=== PATIENT | male | born 1945 ===

== ENCOUNTER 2017-03-18 21:45 | Observation (INO) | payer OTHER ==
[2017-03-18 21:52] VITALS: BMI 30.8
[2017-03-18] MEDS ORDERED: Sodium Chloride 0.9% 1,000 ML IV STA ×2 (22:26→23:44)
[2017-03-18] MEDS ORDERED: Insulin Regular 1 UNITS/0.01 ML ML IV STA (22:28)
[2017-03-18 22:53] LABS: BASO # 0.04 K/mm3 (0.0-2.0); BASO % 0.6 % (0.0-3.0); EOS # 0.3 (0.0-0.7); EOS % 3.9 % (1.5-5.0); GRAN # 4.12 (1.4-6.5); GRAN % 58.9 % (50.0-68.0); HEMOGLOBIN 14.1 g/dL (14.0-18.0); LYMPH # 2.1 (1.2-3.4); LYMPH % 30.3 % (22.0-35.0); MEAN CELL VOLUME 93.7 fl (80.0-105.0); MEAN CORPUSCULAR HEMOGLOBIN 30.6 pg (25.0-35.0); MEAN CORPUSCULAR HGB CONC 32.6 g/dl (31.0-37.0); MEAN PLATELET VOLUME 13.3 fl (7.0-11.0); MONO # 0.4 (0.1-0.6); MONO % 6.3 % (1.0-6.0); RBC 4.61 10^6/uL (3.5-6.1); RED CELL DISTRIBUTION WIDTH 13.6 % (11.5-14.5)
[2017-03-18 22:54] LABS: URINE BILIRUBIN NEGATIVE (NEGATIVE); URINE BLOOD NEGATIVE (NEGATIVE); URINE GLUCOSE (UA) >=1000 mg/dL (NEGATIVE); URINE LEUKOCYTE ESTERASE NEGATIVE Leu/uL (NEGATIVE); URINE NITRATE NEGATIVE (NEGATIVE); URINE PROTEIN NEGATIVE mg/dL (<30 mg/dL); URINE UROBILINOGEN 0.2 E.U./dL (<1 E.U./dL)
[2017-03-18 22:55] LABS: URINE APPEARANCE CLEAR (CLEAR); URINE COLOR YELLOW (YELLOW)
[2017-03-18 23:05] LABS: ALB/GLOB RATIO 1.3 (1.1-1.8); ALBUMIN 4.3 g/dL (3.0-4.8); ALT/SGPT 52 U/L (7-56); AST/SGOT 29 U/L (17-59); BLOOD UREA NITROGEN 14 mg/dL (7-21); CALCIUM 10.1 mg/dL (8.4-10.5); GFR AFRICAN-AMERICAN > 60; GFR NON-AFRICAN AMERICAN > 60; INR 0.91 (0.93-1.08); MAGNESIUM 2.2 mg/dL (1.7-2.2); PROTHROMBIN TIME 10.4 SECONDS (9.4-12.5)
[2017-03-18 23:12] LABS: TROPONIN I < 0.01 ng/mL
--- NOTE | 2017-03-18 23:43 | ED PDOC ---
Arrival/HPI - General Chief Complaint: High Blood Sugar Time Seen by Provider: 03/18/17 22:01 Historian: Patient - History of Present Illness Narrative History of Present Illness (Text): 03/19/17 00:43 72yo male with PMHx of hypercholestrol present with complaint of polyuria/phagia /dipsia, weight loss, x 3weeks. States he had Flu 3weeks ago and thought these symptoms are related to the flu, but his BS was greater than 400 when his checked it tonight. He denies previous history of Diabetes. states the last time he saw his PCP was 3years ago. He denies nausea, vomiting, abdominal pain, chest pain, SOB, diaphoresis, urinary symptoms, any other complaint. Past Medical History - Provider Review Nursing Documentation Reviewed: Yes - Pulmonary Hx Respiratory Disorders: No - Neurological Hx Neurological Disorder: No - HEENT Hx HEENT Disorder: No - Renal Hx Renal Disorder: No - Endocrine/Metabolic Hx Endocrine Disorders: No - Hematological/Oncological Hx Blood Disorders: No - Integumentary Hx Dermatological Disorder: No - Musculoskeletal/Rheumatological Hx Musculoskeletal Disorders: No - Gastrointestinal Hx Gastrointestinal Disorders: No - Genitourinary/Gynecological Hx Genitourinary Disorders: No - Psychiatric Hx Psychophysiologic Disorder: No Hx Substance Use: No Family/Social History - Physician Review Nursing Documentation Reviewed: Yes Family/Social History: Unknown Family HX Smoking Status: Never Smoked Hx Alcohol Use: Yes Frequency of alcohol use: Socially Hx Substance Use: No Allergies/Home Meds Allergies/Adverse Reactions: Allergies No Known Allergies Allergy (Verified 03/18/17 21:51) Home Medications: Home Meds Medication Instructions Recorded Confirmed No Known Home Med 03/18/17 03/18/17 Review of Systems - Physician Review All systems were reviewed & negative as marked: Yes - Review of Systems Constitutional: Fatigue Eyes: Normal ENT: Normal Respiratory: Normal Cardiovascular: Normal Gastrointestinal: Normal Genitourinary Male: Normal Musculoskeletal: Normal Skin: Normal Neurological: Normal Endocrine: Polyuria, Polydipsia Hemo/Lymphatic: Normal Psychiatric: Normal Physical Exam Vital Signs Reviewed: Yes Vital Signs Temp Pulse Resp BP Pulse Ox 03/19/17 00:28 83 18 135/82 98 03/18/17 21:54 98.6 F 92 H 18 138/86 97 03/18/17 21:52 98.2 F 92 H 20 138/86 95 Temperature: Afebrile Blood Pressure: Normal Pulse: Regular Respiratory Rate: Normal Appearance: Positive for: Well-Appearing, Non-Toxic, Comfortable Pain Distress: None Mental Status: Positive for: Alert and Oriented X 3 Finger Stick Blood Glucose: 500 - Systems Exam Head: Present: Atraumatic, Normocephalic Pupils: Present: PERRL Extroacular Muscles: Present: EOMI Conjunctiva: Present: Normal Mouth: Present: Moist Mucous Membranes Neck: Present: Normal Range of Motion Respiratory/Chest: Present: Clear to Auscultation, Good Air Exchange. No: Respiratory Distress, Accessory Muscle Use Cardiovascular: Present: Regular Rate and Rhythm, Normal S1, S2. No: Murmurs Abdomen: Present: Normal Bowel Sounds. No: Tenderness, Distention, Peritoneal Signs Back: Present: Normal Inspection Upper Extremity: Present: Normal Inspection. No: Cyanosis, Edema Lower Extremity: Present: Normal Inspection. No: Edema Neurological: Present: GCS=15, CN II-XII Intact, Speech Normal Skin: Present: Warm, Dry, Normal Color. No: Rashes Psychiatric: Present: Alert, Oriented x 3, Normal Insight, Normal Concentration Medical Decision Making ED Course and Treatment: 03/19/17 00:50 PT presented for stated history. His BS was 500 in triage. Lab was 892 with normal AG. 2liters of NS was ordered and 18 units of IV insulin and 20units of Sq insulin given. Repeat FS was 328 in ED. Pt will be admitted for proper education of his BS, he is a new onset diabetic. EKG NSR with RBBB @83bpm. No ST changes. Case was DW Dr. Mccormack and he accepted pt for admission. Result and plan was DW the pt and he agreed - Lab Interpretations Lab Results: 03/18/17 22:38 03/18/17 22:38 Lab Results 03/19/17 00:39: POC Glucose (mg/dL) 334 H 03/19/17 00:15: pCO2 35, pO2 83.0, HCO3 21.7, ABG pH 7.40, ABG Total CO2 22.8, ABG O2 Saturation 98.9 H, ABG O2 Content 16.8, ABG Base Excess -2.6 L, ABG Hemoglobin 12.4, ABG Carboxyhemoglobin 1.9 H, POC ABG HHb (Measured) 1.1, ABG Methemoglobin 0.9, ABG O2 Capacity 17.0, Hgb O2 Saturation 96.1, FiO2 21.0 03/18/17 23:26: POC Glucose (mg/dL) > 500 H* 03/18/17 22:38: Sodium 130 L, Potassium 4.6, Chloride 93 L, Carbon Dioxide 24, Anion Gap 18, BUN 14, Creatinine 0.9, Est GFR ( Amer) > 60, Est GFR (Non- Af Amer) > 60, Random Glucose 892 H*, Calcium 10.1, Magnesium 2.2, Total Bilirubin 0.5, AST 29, ALT 52, Alkaline Phosphatase 198 H, Lactate Dehydrogenase 372, Total Creatine Kinase 91, Troponin I < 0.01, Total Protein 7.6, Albumin 4.3, Globulin 3.3, Albumin/Globulin Ratio 1.3 03/18/17 22:38: Urine Color Yellow, Urine Appearance Clear, Urine pH 6.0, Ur Specific [place] 1.010, Urine Protein Negative, Urine Glucose (UA) >=1000, Urine Ketones Negative, Urine Blood Negative, Urine Nitrate Negative, Urine Bilirubin Negative, Urine Urobilinogen 0.2, Ur Leukocyte Esterase Negative 03/18/17 22:38: PT 10.4, INR 0.91 L, APTT 30.0 03/18/17 22:38: WBC 7.0, RBC 4.61, Hgb 14.1, Hct 43.2, MCV 93.7, MCH 30.6, MCHC 32.6, RDW 13.6, Plt Count 214, MPV 13.3 H, Gran % 58.9, Lymph % (Auto) 30.3, [place] % (Auto) 6.3 H, Eos % (Auto) 3.9, Baso % (Auto) 0.6, Gran # 4.12, Lymph # ( Auto) 2.1, [place] # (Auto) 0.4, Eos # (Auto) 0.3, Baso # (Auto) 0.04 - Medication Orders Current Medication Orders: Sodium Chloride (Sodium Chloride 0.9%) 1,000 mls @ 999 mls/hr IV .Q1H1M STA Stop: 03/19/17 00:44 Last Admin: 03/18/17 23:45 Dose: 999 mls/hr eMAR Start Stop Document 03/18/17 23:45 AD (Rec: 03/19/17 00:01 AD [id number]) Intravenous Solution Start Date 03/19/17 Start Time 23:45 Discontinued Medications Sodium Chloride (Sodium Chloride 0.9%) 1,000 mls @ 999 mls/hr IV .Q1H1M STA Stop: 03/18/17 23:26 Last Admin: 03/18/17 22:30 Dose: 999 mls/hr eMAR Start Stop Document 03/18/17 22:30 AD (Rec: 03/18/17 23:10 AD [id number]) Intravenous Solution Start Date 03/18/17 Start Time 22:30 Insulin Human Regular (Humulin R) 10 units IV ONCE STA PRN Reason: Protocol Stop: 03/18/17 22:29 Last Admin: 03/18/17 22:40 Dose: 10 units eMAR Start Stop Document 03/18/17 22:40 AD (Rec: 03/18/17 23:10 AD [id number]) Intravenous Solution Start Date 03/18/17 Start Time 22:40 MAR Blood Glucose Document 03/18/17 22:40 AD (Rec: 03/18/17 23:10 AD [id number]) Blood Glucose Finger Stick Blood Glucose (70-120) 500 Insulin Human Regular (Humulin R) 8 units IVP ONCE STA Stop: 03/18/17 23:46 Last Admin: 03/18/17 23:50 Dose: 8 units MAR Blood Glucose Document 03/18/17 23:50 AD (Rec: 03/19/17 00:01 AD [id number]) Blood Glucose Finger Stick Blood Glucose (70-120) 500 IVP Administration Document 03/18/17 23:50 AD (Rec: 03/19/17 00:01 AD [id number]) Charges for Administration # of IVP Administrations 1 Insulin Human Regular (Humulin R) 20 units SC ONCE STA Stop: 03/19/17 00:03 Last Admin: 03/19/17 00:23 Dose: 20 units MAR Blood Glucose Document 03/19/17 00:23 AD (Rec: 03/19/17 00:24 AD [id number]) Blood Glucose Finger Stick Blood Glucose (70-120) 500 Subcutaneous Administrations Document 03/19/17 00:23 AD (Rec: 03/19/17 00:24 AD [id number]) Injection Site MAR Injection Site Left Abdomen Charges for Administration # of Subcutaneous Administrations 1 Disposition/Present on Arrival - Present on Arrival Any Indicators Present on Arrival: No History of DVT/PE: No History of Uncontrolled Diabetes: No Urinary Catheter: No History of Decub. Ulcer: No History Surgical Site Infection Following: None - Disposition Have Diagnosis and Disposition been Completed?: Yes Diagnosis: Diabetes mellitus, new onset Disposition: HOSPITALIZED Disposition Time: 00:50 Condition: FAIR Referrals: Ciro Lorenz [Primary Care Provider] - Follow up with primary Forms: [employer] (Sinhala)
[2017-03-18] MEDS ORDERED: Insulin Regular 1 UNITS/0.01 ML ML IVP STA (23:45)
[2017-03-19] MEDS ORDERED: Insulin Regular 1 UNITS/0.01 ML ML SC STA (00:02)
[2017-03-19 00:19] LABS: ARTERIAL BLOOD GAS HCO3 21.7 mmol/L (21-28); ARTERIAL BLOOD GAS HEMOGLOBIN 12.4 g/dL (11.7-17.4); ARTERIAL BLOOD GAS O2 CONTENT 16.8 ML/dl (15-23); ARTERIAL BLOOD GAS O2 SAT 98.9 % (95-98); ARTERIAL BLOOD GAS PCO2 35 mm/Hg (35-45); ARTERIAL BLOOD GAS TCO2 22.8 mmol.L (22-28)
--- NOTE | 2017-03-19 01:52 | CP.PCM.HP ---
History of Present Illness - History of Present Illness History of Present Illness: 72 year old male with no significant past medical history presents with complaint of polyuria, polyphagia, polydipsia, weight loss for a month now. Patient states he has been drinking excessive amount of water, urinating every 30 min and having an increased appetite. He has also lost a significant amount of weight as his clothes are all loose now. Patient also admits to weakness and fatigue. Patients step daughter noticed symptoms today and took patient blood sugar at home which read over 600 at that point. Patient denies any nausea, vomiting, chest pain, shortness of breath, fever, chills or any other symptoms at this time. Patient does not currently have a PMD, last time he saw physician was 3 years ago. PMH: none significant PSH: none Allergies: none Social: denies alcohol use, occasional beer on the weekends, denies illicit drug use Meds: none Family: brother has DM Present on Admission - Present on Admission Any Indicators Present on Admission: No Review of Systems - Constitutional Constitutional: Fatigue, Increased Appetite, Lethargy, Malaise, Weight Loss, Weakness. absent: Anorexia, Chills, Fever - EENT Eyes: absent: Blurred Vision, Change in Vision Nose/Mouth/Throat: absent: Nasal Congestion, Nasal Discharge - Cardiovascular Cardiovascular: absent: Chest Pain, Dyspnea, Lightheadedness, Palpitations - Respiratory Respiratory: absent: Cough, Dyspnea, Chest Congestion - Gastrointestinal Gastrointestinal: absent: Abdominal Pain, Nausea, Vomiting - Genitourinary Genitourinary: Urinary Frequency - Musculoskeletal Musculoskeletal: absent: Arthralgias, Numbness, Tingling - Integumentary Integumentary: absent: Rash, Sores Past Patient History - Past Social History Smoking Status: Never Smoked - PULMONARY Hx Respiratory Disorders: No - NEUROLOGICAL Hx Neurological Disorder: No - HEENT Hx HEENT Problems: No - RENAL Hx Chronic Kidney Disease: No - ENDOCRINE/METABOLIC Hx Endocrine Disorders: No - HEMATOLOGICAL/ONCOLOGICAL Hx Blood Disorders: No - INTEGUMENTARY Hx Dermatological Problems: No - MUSCULOSKELETAL/RHEUMATOLOGICAL Hx Musculoskeletal Disorders: No - GASTROINTESTINAL Hx Gastrointestinal Disorders: No - GENITOURINARY/GYNECOLOGICAL Hx Genitourinary Disorders: No - PSYCHIATRIC Hx Psychophysiologic Disorder: No Hx Substance Use: No - SURGICAL HISTORY Hx Surgeries: No Meds Allergies/Adverse Reactions: Allergies Allergy/AdvReac Type Severity Reaction Status Date / Time No Known Allergies Allergy Verified 03/18/17 21:51 Physical Exam - Constitutional Appears: Non-toxic, No Acute Distress - Head Exam Head Exam: ATRAUMATIC, NORMAL INSPECTION, NORMOCEPHALIC - Eye Exam Eye Exam: EOMI, Normal appearance - ENT Exam ENT Exam: Mucous Membranes Moist, Normal Exam - Neck Exam Neck exam: Negative for: Lymphadenopathy, Tenderness - Respiratory Exam Respiratory Exam: Clear to Auscultation Bilateral, NORMAL BREATHING PATTERN - Cardiovascular Exam Cardiovascular Exam: REGULAR RHYTHM, +S1, +S2 - GI/Abdominal Exam GI & Abdominal Exam: Normal Bowel Sounds, Soft - Extremities Exam Extremities exam: Positive for: pedal pulses present. Negative for: pedal edema , tenderness - Neurological Exam Neurological exam: Alert, Oriented x3 Results - Vital Signs Recent Vital Signs: Last Vital Signs Temp 98.6 F 03/18/17 21:54 Pulse 83 03/19/17 00:28 Resp 18 03/19/17 00:28 BP 135/82 03/19/17 00:28 Pulse Ox 98 03/19/17 00:28 - Labs Result Diagrams: 03/18/17 22:38 03/18/17 22:38 Labs: Laboratory Results - last 24 hr 03/19/17 00:39 POC Glucose (mg/dL) 334 H Assessment & Plan - Assessment and Plan (Free Text) Assessment: 72 year old male with no significant past medical history presents with complaint of polyuria, polyphagia, polydipsia, weight loss for a month now. Patient was found to have a blood sugar of 892. Plan: 1. Elevated Blood Sugar Level -EKG pending official read -Blood Sugar initially 892, last was 334 -insulin given in ED -sliding scale high -NPH 20 units for breakfast and dinner -NS given inn ED -continue to monitor -Fingerstick Q1H -heart healthy diet -Hemoglobin A1C pending -lipid panel penidng -TSh/T4 Pending 2. Hyponatremia 2/2 elevated Blood Sugar -Na 130 -continue to monitor GI/DVT -protonix -SCD
[2017-03-19 01:54] LABS: AMYLASE 53 U/L (35-125); HDL CHOLESTEROL 36 mg/dL (29-60); LIPASE 272 U/L (23-300)
[2017-03-19 02:04] LABS: LDL CHOLESTEROL 87 mg/dL (0-129)
[2017-03-19 02:13] LABS: T4 5.9 ug/dL (5.5-11.0)
[2017-03-19] MEDS ORDERED: Sodium Chloride 0.9% 1,000 ML IV SCH ×2 (02:15→07:30)
[2017-03-19] MEDS ORDERED: Influenza Vaccine 60 mcg/0.5 mL SYR (4YR UP) IM ONE (07:40)
[2017-03-19] MEDS ORDERED: Pneumococcal 23-Valent Vaccine IM ONE (07:40)
[2017-03-19] MEDS ORDERED: Insulin Human NPH 1 UNITS/0.01 ML SC SCH ×2 (08:00→17:00)
[2017-03-19] MEDS: Insulin Lispro (HUMAlog) HIGH Coverage SC SCH ×2 (08:03→12:19)
[2017-03-19 08:12] LABS: BASO # 0.02 K/mm3 (0.0-2.0); BASO % 0.2 % (0.0-3.0); EOS # 0.5 (0.0-0.7); EOS % 5.9 % (1.5-5.0); GRAN # 4.84 (1.4-6.5); HEMOGLOBIN 12.6 g/dL (14.0-18.0); LYMPH # 2.4 (1.2-3.4); LYMPH % 28.3 % (22.0-35.0); MEAN CORPUSCULAR HEMOGLOBIN 29.9 pg (25.0-35.0); MEAN CORPUSCULAR HGB CONC 32.9 g/dl (31.0-37.0); MEAN PLATELET VOLUME 13.1 fl (7.0-11.0); MONO # 0.6 (0.1-0.6); MONO % 7.6 % (1.0-6.0); RBC 4.21 10^6/uL (3.5-6.1); RED CELL DISTRIBUTION WIDTH 13.2 % (11.5-14.5); WHITE BLOOD COUNT 8.3 10^3/ul (4.5-11.0)
[2017-03-19 08:24] LABS: LDL CHOLESTEROL 83 mg/dL (0-129)
[2017-03-19 08:29] LABS: FREE T4 1.12 ng/dL (0.78-2.19)
--- NOTE | 2017-03-19 08:36 | RAD ---
HISTORY: admission COMPARISON: No prior. FINDINGS: LUNGS: No active pulmonary disease. PLEURA: No significant pleural effusion identified, no pneumothorax apparent. CARDIOVASCULAR: Normal. OSSEOUS STRUCTURES: No significant abnormalities. VISUALIZED UPPER ABDOMEN: Normal. OTHER FINDINGS: None. IMPRESSION: No active disease.
[2017-03-19 08:38] LABS: ALB/GLOB RATIO 1.2 (1.1-1.8); ALBUMIN 3.5 g/dL (3.0-4.8); ALT/SGPT 38 U/L (7-56); AST/SGOT 27 U/L (17-59); BILIRUBIN,DIRECT 0.4 mg/dL (0.0-0.4); BLOOD UREA NITROGEN 13 mg/dL (7-21); CALCIUM 9.2 mg/dL (8.4-10.5); GFR AFRICAN-AMERICAN > 60; GFR NON-AFRICAN AMERICAN > 60; HDL CHOLESTEROL 36 mg/dL (29-60); MAGNESIUM 2.1 mg/dL (1.7-2.2)
[2017-03-19] MEDS: Omega-3-Acid Ethyl Esters 1 GM Cap PO SCH ×2 (09:23→17:07)
[2017-03-19] MEDS: Enoxaparin 40 mg Syringe SC SCH (09:23)
--- NOTE | 2017-03-19 12:28 | CARD ---
APPROVED REPORT EKG Measurement Heart [id number] CT [id number] <Conclusion> Normal sinus rhythm Right bundle branch block Abnormal ECG
[2017-03-19 15:16] LABS: URINE APPEARANCE CLEAR (CLEAR); URINE BILIRUBIN NEGATIVE (NEGATIVE); URINE BLOOD NEGATIVE (NEGATIVE); URINE COLOR YELLOW (YELLOW); URINE GLUCOSE (UA) >=1000 mg/dL (NEGATIVE); URINE LEUKOCYTE ESTERASE NEGATIVE Leu/uL (NEGATIVE); URINE NITRATE NEGATIVE (NEGATIVE); URINE PROTEIN NEGATIVE mg/dL (<30 mg/dL); URINE UROBILINOGEN 0.2 E.U./dL (<1 E.U./dL)
--- NOTE | 2017-03-19 15:37 | CP.PCM.CON ---
<Sudhir David - Last Filed: 03/19/17 15:32> History of Present Illness - History of Present Illness History of Present Illness: 72 year old male patient with no significant past medical history was seen and evaluated at bedside for newly diagnosed DM. Patient reports that he was admitted to the hospital yesterday with the blood sugar level in the "800s". Patient states that he does not manage his diet. Patient denies of any form of numbness, tingling or burning in his feet today. Patient denies of any recent F/ N/V/C/SOB/CP/headache. Patient reports of polyuria, polydipsia, polyphagia and weight loss. Patient denies of any other complains at this time. Patient reported that he does not see a primary care doctor as he does not have one. Patient denies of any other complains at this time. PMHx: none significant PSHx: none Allergies: none SocialHx: denies alcohol use, occasional beer on the weekends, denies illicit drug use FamilyHx: brother has DM Review of Systems - EENT Eyes: As Per HPI Past Patient History - Past Social History Smoking Status: Never Smoked - PULMONARY Hx Respiratory Disorders: No - NEUROLOGICAL Hx Neurological Disorder: No - HEENT Hx HEENT Problems: No - RENAL Hx Chronic Kidney Disease: No - ENDOCRINE/METABOLIC Hx Endocrine Disorders: No - HEMATOLOGICAL/ONCOLOGICAL Hx Blood Disorders: No - INTEGUMENTARY Hx Dermatological Problems: No - MUSCULOSKELETAL/RHEUMATOLOGICAL Hx Musculoskeletal Disorders: No - GASTROINTESTINAL Hx Gastrointestinal Disorders: No - GENITOURINARY/GYNECOLOGICAL Hx Genitourinary Disorders: No - PSYCHIATRIC Hx Psychophysiologic Disorder: No Hx Substance Use: No - SURGICAL HISTORY Hx Surgeries: No Meds Allergies/Adverse Reactions: Allergies Allergy/AdvReac Type Severity Reaction Status Date / Time No Known Allergies Allergy Verified 03/18/17 21:51 - Medications Medications: Current Medications Atorvastatin Calcium (Lipitor) 40 mg PO DIN [facility] Enoxaparin Sodium (Lovenox) 40 mg SC DAILY [facility] PRN Reason: Protocol Last Admin: 03/19/17 09:23 Dose: 40 mg Sodium Chloride (Sodium Chloride 0.9%) 1,000 mls @ 150 mls/hr IV .Q6H40M [facility] Insulin Detemir (Levemir) 14 unit SC HS [facility] Insulin Human Lispro (Humalog Low) 0 units SC ACHS [facility] PRN Reason: Protocol Insulin Human Lispro (Humalog) 10 units SC AC [facility] [id number] Ethyl Esters (Lovaza) 2 gm PO BID [facility] Last Admin: 03/19/17 09:23 Dose: 2 gm Pantoprazole Sodium (Protonix Ec Tab) 40 mg PO 0600,1600 [facility] Physical Exam - Constitutional Appears: Well, Non-toxic, No Acute Distress - Extremities Exam Additional comments: Bilateral LE focused exam VASC: DP/PT pulses are palpable 2/4, Cap refill time: < 3 sec to all digits, Temp gradient: warm to cool from proximal to distal, no pitting or non-pitting edema noted; diffuse varicosities noted on b/l LE DERM: Diffuse xerosis noted on bilateral feet, no interdigital maceration, no open lesions, no clinical suspicion of active infection at this time NEURO: Protective sensation mildly diminished tested via Ipswitch test ORTHO: no pain on palpation of the plantar medial tubercle on calc; no pain at the ankle joint, STJ, MTJ, or first ray during passive ROM, no pain at any joints during AROM; MMT: 5/5 during ROM in all 4 compartments - Neurological Exam Neurological exam: Alert, Normal Gait, Oriented x3 - Psychiatric Exam Psychiatric exam: Normal Affect, Normal Mood Results - Vital Signs Recent Vital Signs: Last Vital Signs Temp 98.6 F 03/19/17 07:30 Pulse 81 03/19/17 07:30 Resp 18 03/19/17 07:30 BP 115/79 03/19/17 07:30 Pulse Ox 96 03/19/17 07:30 - Labs Result Diagrams: 03/19/17 07:30 03/19/17 07:30 Labs: Laboratory Results - last 24 hr 03/19/17 03/19/17 03/19/17 00:39 01:10 01:10 WBC RBC Hgb Hct MCV MCH MCHC RDW Plt Count MPV Gran % Lymph % (Auto) Ransom % (Auto) Eos % (Auto) Baso % (Auto) Gran # Lymph # (Auto) Ransom # (Auto) Eos # (Auto) Baso # (Auto) ESR Sodium Potassium Chloride Carbon Dioxide Anion Gap BUN Creatinine Est GFR ( Amer) Est GFR (Non-Af Amer) POC Glucose (mg/dL) 334 H Random Glucose Hemoglobin A1c Calcium Magnesium Total Bilirubin Direct Bilirubin AST ALT Alkaline Phosphatase C-React Prot High Sens 3.12 H Total Protein Albumin Globulin Albumin/Globulin Ratio Triglycerides 252 H Cholesterol 164 LDL Cholesterol Direct 87 HDL Cholesterol 36 Amylase 53 Lipase 272 Prostate Specific Ag 25-OH Vitamin D Total Free T4 Thyroxine (T4) 5.9 TSH 3rd Generation 1.91 Urine Color Urine Appearance Urine pH Ur Specific [place] Urine Protein Urine Glucose (UA) Urine Ketones Urine Blood Urine Nitrate Urine Bilirubin Urine Urobilinogen Ur Leukocyte Esterase 03/19/17 03/19/17 03/19/17 01:10 01:10 07:28 WBC RBC Hgb Hct MCV MCH MCHC RDW Plt Count MPV Gran % Lymph % (Auto) Ransom % (Auto) Eos % (Auto) Baso % (Auto) Gran # Lymph # (Auto) Ransom # (Auto) Eos # (Auto) Baso # (Auto) ESR 43 H Sodium Potassium Chloride Carbon Dioxide Anion Gap BUN Creatinine Est GFR ( Amer) Est GFR (Non-Af Amer) POC Glucose (mg/dL) 75 Random Glucose Hemoglobin A1c 15.1 H Calcium Magnesium Total Bilirubin Direct Bilirubin AST ALT Alkaline Phosphatase C-React Prot High Sens Total Protein Albumin Globulin Albumin/Globulin Ratio Triglycerides Cholesterol LDL Cholesterol Direct HDL Cholesterol Amylase Lipase Prostate Specific Ag 25-OH Vitamin D Total Free T4 Thyroxine (T4) TSH 3rd Generation Urine Color Urine Appearance Urine pH Ur Specific [place] Urine Protein Urine Glucose (UA) Urine Ketones Urine Blood Urine Nitrate Urine Bilirubin Urine Urobilinogen Ur Leukocyte Esterase 03/19/17 03/19/17 03/19/17 07:30 07:30 07:30 WBC 8.3 RBC 4.21 Hgb 12.6 L Hct 38.3 L MCV 91.0 MCH 29.9 MCHC 32.9 RDW 13.2 Plt Count 193 MPV 13.1 H Gran % 58.0 Lymph % (Auto) 28.3 Ransom % (Auto) 7.6 H Eos % (Auto) 5.9 H Baso % (Auto) 0.2 Gran # 4.84 Lymph # (Auto) 2.4 Ransom # (Auto) 0.6 Eos # (Auto) 0.5 Baso # (Auto) 0.02 ESR Sodium 143 Potassium 3.9 Chloride 106 Carbon Dioxide 27 Anion Gap 13 BUN 13 Creatinine 0.7 L Est GFR ( Amer) > 60 Est GFR (Non-Af Amer) > 60 POC Glucose (mg/dL) Random Glucose 87 Hemoglobin A1c Calcium 9.2 Magnesium 2.1 Total Bilirubin 0.4 Direct Bilirubin 0.4 AST 27 ALT 38 Alkaline Phosphatase 90 C-React Prot High Sens Total Protein 6.5 Albumin 3.5 Globulin 3.0 Albumin/Globulin Ratio 1.2 Triglycerides 160 Cholesterol 151 LDL Cholesterol Direct 83 HDL Cholesterol 36 Amylase Lipase Prostate Specific Ag 2.6 H 25-OH Vitamin D Total Free T4 1.12 Thyroxine (T4) TSH 3rd Generation Urine Color Urine Appearance Urine pH Ur Specific [place] Urine Protein Urine Glucose (UA) Urine Ketones Urine Blood Urine Nitrate Urine Bilirubin Urine Urobilinogen Ur Leukocyte Esterase 03/19/17 03/19/17 03/19/17 07:30 11:23 15:05 WBC RBC Hgb Hct MCV MCH MCHC RDW Plt Count MPV Gran % Lymph % (Auto) Ransom % (Auto) Eos % (Auto) Baso % (Auto) Gran # Lymph # (Auto) Ransom # (Auto) Eos # (Auto) Baso # (Auto) ESR Sodium Potassium Chloride Carbon Dioxide Anion Gap BUN Creatinine Est GFR ( Amer) Est GFR (Non-Af Amer) POC Glucose (mg/dL) 334 H Random Glucose Hemoglobin A1c Calcium Magnesium Total Bilirubin Direct Bilirubin AST ALT Alkaline Phosphatase C-React Prot High Sens Total Protein Albumin Globulin Albumin/Globulin Ratio Triglycerides Cholesterol LDL Cholesterol Direct HDL Cholesterol Amylase Lipase Prostate Specific Ag 25-OH Vitamin D Total < 12.8 L Free T4 Thyroxine (T4) TSH 3rd Generation Urine Color Yellow Urine Appearance Clear Urine pH 6.0 Ur Specific [place] 1.025 Urine Protein Negative Urine Glucose (UA) >=1000 Urine Ketones Trace H Urine Blood Negative Urine Nitrate Negative Urine Bilirubin Negative Urine Urobilinogen 0.2 Ur Leukocyte Esterase Negative Assessment & Plan - Assessment and Plan (Free Text) Assessment: 72 year old male patient with no significant past medical history evaluated with newly diagnosed DM Plan: Patient seen and evaluated with attending Dr. Bautista Labs, vitals and charts reviewed Ammonium lactate cream ordered - applied daily to bilateral feet Patient provided proper education of diabetic diet and glucose control Patient educated the importance of daily exercises Patient educated to check his feet daily for any calluses or pre-ulcerative lesions Patient demonstrated verbal understanding Patient is stable from podiatry standpoint Thank you for the consult and allowing to take part in patient care - once discharge from the hospital; have patient follow up with Dr. Townsend/Dr. Bautista for preventative care - Date & Time Date: 03/19/17 Time: 15:48 <Leandro Bautista - Last Filed: 03/19/17 17:08> Meds - Medications Medications: Current Medications Acetaminophen (Tylenol 325mg Tab) 650 mg PO Q6H PRN PRN Reason: Pain, moderate (4-7) Atorvastatin Calcium (Lipitor) 40 mg PO DIN [facility] Enoxaparin Sodium (Lovenox) 40 mg SC DAILY [facility] PRN Reason: Protocol Last Admin: 03/19/17 09:23 Dose: 40 mg Sodium Chloride (Sodium Chloride 0.9%) 1,000 mls @ 150 mls/hr IV .Q6H40M [facility] Insulin Detemir (Levemir) 14 unit SC HS [facility] Insulin Human Lispro (Humalog Low) 0 units SC ACHS [facility] PRN Reason: Protocol Last Admin: 03/19/17 16:58 Dose: Not Given Insulin Human Lispro (Humalog) 10 units SC AC [facility] [id number] Ethyl Esters (Lovaza) 2 gm PO BID [facility] Last Admin: 03/19/17 09:23 Dose: 2 gm Pantoprazole Sodium (Protonix Ec Tab) 40 mg PO 0600,1600 [facility] Results - Vital Signs Recent Vital Signs: Last Vital Signs Temp 98.3 F 03/19/17 16:00 Pulse 79 03/19/17 16:00 Resp 20 03/19/17 16:00 BP 115/84 03/19/17 16:00 Pulse Ox 96 03/19/17 16:00 - Labs Result Diagrams: 03/19/17 07:30 03/19/17 07:30 Labs: Laboratory Results - last 24 hr 03/19/17 03/19/17 03/19/17 00:39 01:10 01:10 WBC RBC Hgb Hct MCV MCH MCHC RDW Plt Count MPV Gran % Lymph % (Auto) [place]ansom % (Auto) Eos % (Auto) Baso % (Auto) Gran # Lymph # (Auto) Ransom # (Auto) Eos # (Auto) Baso # (Auto) ESR Sodium Potassium Chloride Carbon Dioxide Anion Gap BUN Creatinine Est GFR ( Amer) Est GFR (Non-Af Amer) POC Glucose (mg/dL) 334 H Random Glucose Hemoglobin A1c Calcium Magnesium Total Bilirubin Direct Bilirubin AST ALT Alkaline Phosphatase C-React Prot High Sens 3.12 H Total Protein Albumin Globulin Albumin/Globulin Ratio Triglycerides 252 H Cholesterol 164 LDL Cholesterol Direct 87 HDL Cholesterol 36 Amylase 53 Lipase 272 Prostate Specific Ag 25-OH Vitamin D Total Free T4 Thyroxine (T4) 5.9 TSH 3rd Generation 1.91 Urine Color Urine Appearance Urine pH Ur Specific [place] Urine Protein Urine Glucose (UA) Urine Ketones Urine Blood Urine Nitrate Urine Bilirubin Urine Urobilinogen Ur Leukocyte Esterase 03/19/17 03/19/17 03/19/17 01:10 01:10 07:28 WBC RBC Hgb Hct MCV MCH MCHC RDW Plt Count MPV Gran % Lymph % (Auto) [place] % (Auto) Eos % (Auto) Baso % (Auto) Gran # Lymph # (Auto) [place] # (Auto) Eos # (Auto) Baso # (Auto) ESR 43 H Sodium Potassium Chloride Carbon Dioxide Anion Gap BUN Creatinine Est GFR ( Amer) Est GFR (Non-Af Amer) POC Glucose (mg/dL) 75 Random Glucose Hemoglobin A1c 15.1 H Calcium Magnesium Total Bilirubin Direct Bilirubin AST ALT Alkaline Phosphatase C-React Prot High Sens Total Protein Albumin Globulin Albumin/Globulin Ratio Triglycerides Cholesterol LDL Cholesterol Direct HDL Cholesterol Amylase Lipase Prostate Specific Ag 25-OH Vitamin D Total Free T4 Thyroxine (T4) TSH 3rd Generation Urine Color Urine Appearance Urine pH Ur Specific [place] Urine Protein Urine Glucose (UA) Urine Ketones Urine Blood Urine Nitrate Urine Bilirubin Urine Urobilinogen Ur Leukocyte Esterase 03/19/17 03/19/17 03/19/17 07:30 07:30 07:30 WBC 8.3 RBC 4.21 Hgb 12.6 L Hct 38.3 L MCV 91.0 MCH 29.9 MCHC 32.9 RDW 13.2 Plt Count 193 MPV 13.1 H Gran % 58.0 Lymph % (Auto) 28.3 Ransom % (Auto) 7.6 H Eos % (Auto) 5.9 H Baso % (Auto) 0.2 Gran # 4.84 Lymph # (Auto) 2.4 Ransom # (Auto) 0.6 Eos # (Auto) 0.5 Baso # (Auto) 0.02 ESR Sodium 143 Potassium 3.9 Chloride 106 Carbon Dioxide 27 Anion Gap 13 BUN 13 Creatinine 0.7 L Est GFR ( Amer) > 60 Est GFR (Non-Af Amer) > 60 POC Glucose (mg/dL) Random Glucose 87 Hemoglobin A1c Calcium 9.2 Magnesium 2.1 Total Bilirubin 0.4 Direct Bilirubin 0.4 AST 27 ALT 38 Alkaline Phosphatase 90 C-React Prot High Sens Total Protein 6.5 Albumin 3.5 Globulin 3.0 Albumin/Globulin Ratio 1.2 Triglycerides 160 Cholesterol 151 LDL Cholesterol Direct 83 HDL Cholesterol 36 Amylase Lipase Prostate Specific Ag 2.6 H 25-OH Vitamin D Total Free T4 1.12 Thyroxine (T4) TSH 3rd Generation Urine Color Urine Appearance Urine pH Ur Specific [place] Urine Protein Urine Glucose (UA) Urine Ketones Urine Blood Urine Nitrate Urine Bilirubin Urine Urobilinogen Ur Leukocyte Esterase 03/19/17 03/19/17 03/19/17 07:30 11:23 15:05 WBC RBC Hgb Hct MCV MCH MCHC RDW Plt Count MPV Gran % Lymph % (Auto) [place] % (Auto) Eos % (Auto) Baso % (Auto) Gran # Lymph # (Auto) [place] # (Auto) Eos # (Auto) Baso # (Auto) ESR Sodium Potassium Chloride Carbon Dioxide Anion Gap BUN Creatinine Est GFR ( Amer) Est GFR (Non-Af Amer) POC Glucose (mg/dL) 334 H Random Glucose Hemoglobin A1c Calcium Magnesium Total Bilirubin Direct Bilirubin AST ALT Alkaline Phosphatase C-React Prot High Sens Total Protein Albumin Globulin Albumin/Globulin Ratio Triglycerides Cholesterol LDL Cholesterol Direct HDL Cholesterol Amylase Lipase Prostate Specific Ag 25-OH Vitamin D Total < 12.8 L Free T4 Thyroxine (T4) TSH 3rd Generation Urine Color Yellow Urine Appearance Clear Urine pH 6.0 Ur Specific [place] 1.025 Urine Protein Negative Urine Glucose (UA) >=1000 Urine Ketones Trace H Urine Blood Negative Urine Nitrate Negative Urine Bilirubin Negative Urine Urobilinogen 0.2 Ur Leukocyte Esterase Negative 03/19/17 16:03 WBC RBC Hgb Hct MCV MCH MCHC RDW Plt Count MPV Gran % Lymph % (Auto) [place] % (Auto) Eos % (Auto) Baso % (Auto) Gran # Lymph # (Auto) [place]ansom # (Auto) Eos # (Auto) Baso # (Auto) ESR Sodium Potassium Chloride Carbon Dioxide Anion Gap BUN Creatinine Est GFR ( Amer) Est GFR (Non-Af Amer) POC Glucose (mg/dL) 250 H Random Glucose Hemoglobin A1c Calcium Magnesium Total Bilirubin Direct Bilirubin AST ALT Alkaline Phosphatase C-React Prot High Sens Total Protein Albumin Globulin Albumin/Globulin Ratio Triglycerides Cholesterol LDL Cholesterol Direct HDL Cholesterol Amylase Lipase Prostate Specific Ag 25-OH Vitamin D Total Free T4 Thyroxine (T4) TSH 3rd Generation Urine Color Urine Appearance Urine pH Ur Specific [place] Urine Protein Urine Glucose (UA) Urine Ketones Urine Blood Urine Nitrate Urine Bilirubin Urine Urobilinogen Ur Leukocyte Esterase Attending/Attestation - Attestation I have personally seen and examined this patient.: Yes I have fully participated in the care of the patient.: Yes I have reviewed all pertinent clinical information: Yes
[2017-03-19] MEDS ORDERED: Ammonium Lactate 12% Cream (140 g) TOP ONE (15:49)
[2017-03-19] MEDS: Insulin Lispro (humaLOG) LOW Coverage SC SCH ×2 (16:58→21:58)
[2017-03-19] MEDS: Insulin Lispro 1 UNITS/0.01 ML SC SCH (17:08)
[2017-03-19] MEDS: Pantoprazole 40 mg EC Tab PO SCH (17:08)
[2017-03-19] MEDS ORDERED: Insulin Detemir 100 units/ml Vial (Levemir) SC SCH (22:00)
--- NOTE | 2017-03-20 02:45 | CON ---
DATE: ENDOCRINOLOGY CONSULTATION LOCATION: In room 567. HISTORY OF PRESENT ILLNESS: This is a 72-year-old male with no apparent knowledge of diabetes or intake of any medications for the same, who presents here with a 1-month history of worsening polyuria, nocturia, polydipsia and over 10-pound or so weight loss and is now being referred for diabetic evaluation and management. PAST MEDICAL HISTORY: Essentially unremarkable. His last medical checkup was over 3 years ago. FAMILY HISTORY: A brother has type 2 diabetes. SOCIAL HISTORY: The patient has a supportive family. No known substance use. Drinks beer on weekends. REVIEW OF SYSTEMS: Admits to generalized body weakness with increasing hypersomnolence and lethargy with bifrontal headaches and visual blurring, worse in the last month or so prior to admission. Also admits to episodic dizziness and lightheadedness, worse in the last few days prior to admission. No chest pains or palpitations or PND. His oral intake is variable with nausea and dyspepsia and vague upper abdominal pains. Also admits to marked polyuria, nocturia, polydipsia and even polyphagia with over 10-pound or so weight loss. PHYSICAL EXAMINATION: GENERAL: He is an average built male, in no apparent distress. VITAL SIGNS: Blood pressure of 140/80, pulse of 70 beats per minute and regular, temperature 98, respirations 20, height is 5 feet and 10 inches, weight is 215 pounds. HEENT: Head normocephalic. Eyes are anicteric with pink conjunctivae. Funduscopy is not possible at this time. Ears, nose and throat are otherwise normal. NECK: Supple. Thyroid gland is normal in size. No carotid bruits or cervical adenopathy. CARDIOPULMONARY: Adynamic precordium. S1, S2 is rapid and regular. LUNGS: Clear to auscultation. ABDOMEN: Flat, soft with positive bowel sounds. EXTREMITIES: No peripheral edema. Pulses are +2 bilaterally. LABORATORY DATA: The initial chemistry showed a BUN of 14, sodium 130, potassium 4.6, chloride 93, CO2 of 24, glucose 892 and creatinine 0.9. His hemoglobin A1c is 15.1%. The last glucose today is 334. ASSESSMENT: This is a 72-year-old male with uncontrolled and decompensated type 2 insulin-requiring diabetes, presenting here with hyperosmolar hyperglycemic state and dehydration and is now being referred for diabetic evaluation and management. PLAN OF MANAGEMENT: Because of the marked glucose toxicity and hyperglycemic accelerations, the patient would initially need insulin therapy to override the increased insulin resistance and glucose toxicity thereof. Many times with insulin therapy the patients who are recently diagnosed would recover and would do very well on a combination of oral hypoglycemic drug therapy as noted. Only time, we will tell whether the patient will remain on insulin or whether we can switch him over to oral hypoglycemic therapy. For now, we will start him on a basal and bolus insulin drug combination with Humalog to be given as 10 units subcu t.i.d. before meals, to start today. We will also start him on Levemir given as 14 units subcu at bedtime daily to start tonight and we will titrate incrementally as indicated to optimize metabolic control. We will discontinue the Humulin NPH given twice a day at 20 units b.i.d. 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 We will obtain serial chemistries and supplement accordingly needed. We will also initiate diabetic education to include insulin self-administration and dietary evaluation for healthier food choices as noted. We will follow with you. Uzma France MD
[2017-03-20] MEDS: Pantoprazole 40 mg EC Tab PO SCH (05:18)
[2017-03-20 06:58] LABS: BASO # 0.03 K/mm3 (0.0-2.0); BASO % 0.5 % (0.0-3.0); EOS # 0.5 (0.0-0.7); EOS % 8.2 % (1.5-5.0); GRAN # 3.21 (1.4-6.5); HEMOGLOBIN 11.9 g/dL (14.0-18.0); LYMPH # 2.4 (1.2-3.4); LYMPH % 36.7 % (22.0-35.0); MEAN CELL VOLUME 91.5 fl (80.0-105.0); MEAN CORPUSCULAR HEMOGLOBIN 29.6 pg (25.0-35.0); MEAN CORPUSCULAR HGB CONC 32.3 g/dl (31.0-37.0); MEAN PLATELET VOLUME 12.8 fl (7.0-11.0); MONO # 0.4 (0.1-0.6); MONO % 5.6 % (1.0-6.0); RBC 4.02 10^6/uL (3.5-6.1); RED CELL DISTRIBUTION WIDTH 13.5 % (11.5-14.5); WHITE BLOOD COUNT 6.6 10^3/ul (4.5-11.0)
[2017-03-20 07:57] LABS: ALBUMIN 2.8 g/dL (3.0-4.8); ALT/SGPT 42 U/L (7-56); AST/SGOT 31 U/L (17-59); BILIRUBIN,DIRECT 0.3 mg/dL (0.0-0.4); BLOOD UREA NITROGEN 9 mg/dL (7-21); CALCIUM 8.6 mg/dL (8.4-10.5); GFR AFRICAN-AMERICAN > 60; GFR NON-AFRICAN AMERICAN > 60; MAGNESIUM 1.9 mg/dL (1.7-2.2)
[2017-03-20] MEDS: Insulin Lispro (humaLOG) LOW Coverage SC SCH ×2 (08:01→12:05)
[2017-03-20] MEDS: Insulin Lispro 1 UNITS/0.01 ML SC SCH ×2 (08:25→12:11)
[2017-03-20 08:27] VITALS: BP 118/90; PULSE 72; RESP 18; TEMP 98.9; O2SAT 98
--- NOTE | 2017-03-20 08:27 | HP ---
ADDENDUM The patient is admitted through the ER. Please refer to the history and physical examination of the medical doctor md and the ER physician evaluation for complete details of the patient's chief complaint and history of physical examination. The patient was seen and examined. The patient vital signs and diagnostic data, all reports reviewed. Patient was examined. IMPRESSION AND PLAN: 1. Uncontrolled, possibly new-onset diabetes mellitus with severe hyperglycemia. 2. Polyuria, polydipsia, polyphagia. 3. Fatigue and tiredness. 4. Weight loss. 5. Hyperglycemia. 6. Questionable hypertension. 7. History of hyperlipidemia and alcohol abuse and alcohol use. 8. Elevated erythrocyte sedimentation rate of 43. 9. Mild normocytic anemia. 10. Uncontrolled new-onset diabetes mellitus with hyperglycemia and hemoglobin A1c of 15.1. 11. Transient hyponatremia. 12. Elevated C-reactive protein of greater than 3. 13. Hypertriglyceridemia and hypercholesterolemia. 14. Slightly elevated PSA of 2.6. 15. Hypovitaminosis D. 16. Glycosuria. 17. Right bundle-branch block. PLAN: At this time, the patient is admitted to [facility]. The patient has been ordered serial labs. The patient's current consultation with Podiatry and Endocrinology. CURRENT MEDICATIONS: The patient is started on Humalog 10 units with meals and Humalog low-dose sliding scale coverage before meals and at bedtime. The patient has received in the emergency room 20 units of regular insulin subcu and IV regular insulin 18 units. The patient is started on Lac-Hydrin lotion. The patient was started on Levemir 14 units at bedtime, Lipitor 40 mg daily, Lovaza 2 g twice a day, Lovenox 40 mg subcu daily, Protonix 40 mg daily. The patient is on IV fluid 0.9 normal saline at 150 mL an hour, Tylenol 650 q. 6 p.r.n. DIET: Heart-healthy consistent carbohydrate, low consistent carbohydrate, low-sodium diet. The patient has been ordered Fingerstick blood sugar before meals and at bedtime, out of bed to chair, THERESA stockings, SCDs, occupational therapy, physical therapy ordered. The patient was seen by physical therapist. Discharge recommendation is to home. The patient's case was referred for soap worker. At present, the patient will be treated and stabilized for uncontrolled diabetes mellitus and will be will be discharged once cleared by Endocrinology. Please refer to the detailed history and physical examination by the medical doctor md for further details. Dictated and electronically signed, not read. Michael Mccormack MD
--- NOTE | 2017-03-20 09:36 | CP.PCM.PN ---
Subjective - Date & Time of Evaluation Date of Evaluation: 03/20/17 Time of Evaluation: 07:45 - Subjective Subjective: IM Progress Note for Dr. Mccormack. Patient seen and examined at bedside. No acute events overnight, no acute complaints at time of exam today. Seen ambulating from bathroom, having just brushed teeth. Ambulating well, no complaints of dizziness or LE weakness, gait appropriate. Denies chest pain, shortness of breath, nausea, emesis. Asking when he can go home. Objective - Vital Signs/Intake and Output Vital Signs (last 24 hours): Temp Pulse Resp BP Pulse Ox 98.9 F 72 18 118/90 98 03/20/17 08:25 03/20/17 08:25 03/20/17 08:25 03/20/17 08:25 03/20/17 08:25 Intake and Output: 03/20/17 03/20/17 06:59 18:59 Intake Total 180 Balance 180 - Medications Medications: Current Medications Acetaminophen (Tylenol 325mg Tab) 650 mg PO Q6H PRN PRN Reason: Pain, moderate (4-7) Last Admin: 03/19/17 23:51 Dose: 650 mg Atorvastatin Calcium (Lipitor) 40 mg PO DIN [facility] Last Admin: 03/19/17 17:07 Dose: 40 mg Enoxaparin Sodium (Lovenox) 40 mg SC DAILY [facility] PRN Reason: Protocol Last Admin: 03/19/17 09:23 Dose: 40 mg Sodium Chloride (Sodium Chloride 0.9%) 1,000 mls @ 150 mls/hr IV .Q6H40M [facility] Insulin Detemir (Levemir) 14 unit SC HS [facility] Last Admin: 03/19/17 21:59 Dose: Not Given Insulin Human Lispro (Humalog Low) 0 units SC ACHS [facility] PRN Reason: Protocol Last Admin: 03/20/17 08:01 Dose: Not Given Insulin Human Lispro (Humalog) 10 units SC AC [facility] Last Admin: 03/20/17 08:25 Dose: 10 units Ryfsn-5-Bfgr Ethyl Esters (Lovaza) 2 gm PO BID [facility] Last Admin: 03/19/17 17:07 Dose: 2 gm Pantoprazole Sodium (Protonix Ec Tab) 40 mg PO 0600,1600 [facility] Last Admin: 03/20/17 05:18 Dose: 40 mg - Labs Labs: 03/20/17 06:40 03/20/17 06:40 PT 10.4 SECONDS (9.4-12.5) 03/18/17 22:38 INR 0.91 (0.93-1.08) L 03/18/17 22:38 APTT 30.0 Seconds (25.1-36.5) 03/18/17 22:38 - Constitutional Appears: Well, Non-toxic, No Acute Distress - Head Exam Head Exam: ATRAUMATIC, NORMAL INSPECTION, NORMOCEPHALIC - Eye Exam Eye Exam: EOMI, Normal appearance. absent: Conjunctival injection, Scleral icterus Pupil Exam: absent: Irregular, Unequal - ENT Exam ENT Exam: Mucous Membranes Moist, Normal Exam - Neck Exam Neck Exam: Full ROM, Normal Inspection - Respiratory Exam Respiratory Exam: Clear to Ausculation Bilateral, NORMAL BREATHING PATTERN. absent: Rales, Rhonchi, Wheezes - Cardiovascular Exam Cardiovascular Exam: REGULAR RHYTHM, RRR, +S1, +S2. absent: Bradycardia, Tachycardia, Irregular Rhythm, JVD, +S4 - GI/Abdominal Exam GI & Abdominal Exam: Soft, Normal Bowel Sounds. absent: Tenderness - Extremities Exam Extremities Exam: Full ROM, Normal Inspection. absent: Pedal Edema, Tenderness - Neurological Exam Neurological Exam: Alert, Awake, Normal Gait, Oriented x3 - Psychiatric Exam Psychiatric exam: Normal Affect, Normal Mood - Skin Skin Exam: Dry, Intact, Normal Color, Warm Assessment and Plan - Assessment and Plan (Free Text) Assessment: This is a 72 yo M with no reported PMH who presented for ~1 month of polydipsia, polyphagia, and unintentional weight loss, discovered to be newly diabetic, presenting in [facility] (now resolved). Plan: 1) New onset DM with [facility] -blood glucose 829 on presentation with no gap, improved to 334 after initial fluid bolus and insulin dosing, so not DKA -A1c 15.1 -Endo (Dr. Frnace) consulted, insulin regimen altered to Levemir 14units nights, Lispro 10 units with meals, low dose lispro sliding scale; as per Endo, needs insulin for now due to initial insulin resistance, but may be able to be transitioned to oral hypoglycemic agents eventually -Blood glucose range overnight 136-250 -dysuria resolved, tolerating diet without issue -childbirth educator consulted, instructions on insulin injection provided to patient by nursing, dietary guidance provided -Seen by podiatry, stable from podiatric standpoint, recs outpatient follow up after discharge 2) Pseudohyponatremia - resolved -pseudohyponatremia 2/2 elevated blood glucose, Na on admission corrects from 130 to 142-143 -Na 139 today Dispo: Med-surg, pending final regimen recommendations as per Endo, pending discharge to home FEN: Consistent carb diet, NS 150cc/hr Access: Peripheral IV Consults: Endo, Podiatry Ppx: Protonix for GI, Lovenox for DVT Patient seen, reviewed, and discussed with attending, Dr. Mccormack
[2017-03-20] MEDS: Omega-3-Acid Ethyl Esters 1 GM Cap PO SCH (10:35)
[2017-03-20] MEDS: Enoxaparin 40 mg Syringe SC SCH (10:35)
[2017-03-20] MEDS ORDERED: Influenza Vaccine 60 mcg/0.5 mL SYR (4YR UP) IM ONE (12:16)
[2017-03-20] MEDS ORDERED: Pneumococcal 23-Valent Vaccine IM ONE (13:29)
--- NOTE | 2017-03-20 22:48 | PN ---
DATE: ENDOCRINOLOGY FOLLOWUP NOTE LOCATION: Room 567. SUBJECTIVE: This is a 72-year-old male with recent uncontrolled type 2 insulin-requiring diabetes, now being followed closely for metabolic management. His glucose levels are fluctuating, but improved and today's glucose values have ranged from 204 to 252 mg/dL. His latest chemistry showed a BUN of 9, sodium 139, potassium 3.7, chloride 107, CO2 25, glucose 196 and creatinine 0.7. His hemoglobin A1c was reported as 15.1%, which is clearly elevated and indicative of suboptimal metabolic control of his diabetic condition. ASSESSMENT: This is a 72-year-old male with uncontrolled and decompensated type 2 insulin-requiring diabetes, presenting here with hyperosmolar hyperglycemic state and dehydration as noted. PLAN OF MANAGEMENT: As discussed with medical staff, we will modify his basal and bolus insulin regimen to optimize metabolic control. We will increase his basal insulin given overnight to Levemir at 20 units subcu at bedtime daily as given. We will continue the Humalog given as 10 units subcu t.i.d. before meals as ordered. We will continue also the low-dose correction scale using Humalog insulin as given. We will obtain serial chemistries and supplement accordingly as needed. We will follow. Uzma France MD
--- NOTE | 2017-03-21 02:09 | DS ---
FINAL PROGRESS NOTE AND DISCHARGE SUMMARY LOCATION: The patient is seen in room 567, bed 1. HISTORY OF PRESENT ILLNESS: The patient is seen lying in the bed. Overnight nurse's notes were reviewed. The patient refused SCDs. The patient was found to be alert, awake, responsive. No adverse events were documented. PHYSICAL EXAMINATION: VITAL SIGNS: T-max 98.3-98.9; heart rate 72, 79, 81; blood pressure 118/90, 115/84; respiration 18; O2 sat 96-98%. HEENT: Head: Examination normocephalic, atraumatic. HEENT examination shows pink conjunctivae. Anicteric sclerae. No oropharyngeal lesion. No neck rigidity. CHEST: Kyphosis. LUNG: shows no rales, crackles or wheezing. CARDIOVASCULAR: S1, S2, regular rhythm. ABDOMEN: Soft. Positive bowel sounds. No hepatosplenomegaly noted. No guarding. No rigidity. No rebound tenderness. No costovertebral angle tenderness. GENITALIA: Male. RECTAL: Deferred. EXTREMITY: Shows no pitting edema, no calf tenderness, no Homans' sign. NEUROLOGIC: The patient is alert, awake, responsive. He is able to move upper and lower extremity without assistance. Gait examination is independent. VASCULAR: Palpable pulses. DIAGNOSTICS: On 03/20/2017, WBC 6.6, hemoglobin and hematocrit 11.9 and 36.8, platelet 182. Sodium 139, potassium 3.7, chloride 107, CO2 of 25, anion gap 11, BUN 9, creatinine 0.7, GFR greater than 60. Glucose 196, 204, 252, 136, 250, 334. Calcium 8.6, magnesium 1.9. LFTs are normal. Total protein 5.6, albumin 2.8. Vitamin D is less than 12.8. FINAL IMPRESSION, PLAN AND DISCHARGE DIAGNOSES: 1. Uncontrolled decompensated type 2 insulin-requiring diabetes mellitus with hyperosmolar hyperglycemic state and dehydration. 2. Questionable mild hypertension. 3. History of polyuria, polyphagia, polydipsia and weight loss. 4. Uncontrolled insulin-requiring diabetes mellitus. 5. Normocytic anemia. 6. Elevated erythrocyte sedimentation rate of 43. 7. Transient hyponatremia. 8. Uncontrolled insulin-requiring diabetes mellitus with hemoglobin A1c of 15.1 and fructosamine of greater than 640. 9. Elevated C-reactive protein. 10. Hypertriglyceridemia and hypercholesterolemia. 11. Slightly elevated prostate-specific antigen of 2.6. 12. Hypovitaminosis D. 13. Protein malnutrition. 14. Hypoalbuminemia. 15. Glycosuria. 16. Right bundle-branch block. PLAN: At this time, the patient's discharge management was discussed with technology sales representative, Dr. Uzma France. Endocrinology recommendation is to start Levemir 14 units at night and Lispro 10 units with meals. The patient was referred to music educator. The patient is to be discharged home today after cleared by Cardiology. The patient is to follow up with Dr. Mccormack and Endocrinology within this week. The patient was advised to stop smoking. The patient's discharge meds as per updated ambulatory orders and new script. The patient's discharge medications are as follows. Lipitor 40 mg daily; Chemstrips and Glucometer were given; Levemir increased to 20 units at bedtime; Lispro 10 units with meals, breakfast, lunch and dinner; Lovaza 2 g twice a day; Protonix 40 mg daily. Insulin pen needle was also given. During this hospitalization, the patient was extensively explained about the details of his medical condition, diagnoses, test results, recommendation by all the physician was explained to the patient in layman's language. All questions concerned answered. Dictated and electronically signed, not read. Signing off, Michael Mccormack MD
[2017-03-22 15:22] LABS: GLYCOMARK(R) 0.4 mcg/mL (7.3-36.6)
== END 2017-03-20 14:28 | disposition home or self-care (01) ==
LOC: ED 21:45 → ERH 03-19 00:38 → 5RNO 03-19 01:54
PROVIDERS: ADMIT Internal Medicine; ATTEND Internal Medicine
DX: E11.00 Type 2 diabetes mellitus with hyperosmolarity without nonketotic hyperglycemic-hyperosmolar coma (NKHHC) (principal); E86.0 Dehydration; E87.1 Hypo-osmolality and hyponatremia; D64.9 Anemia, unspecified; E78.2 Mixed hyperlipidemia; E55.9 Vitamin D deficiency, unspecified; E46 Unspecified protein-calorie malnutrition; I45.10 Unspecified right bundle-branch block; Z79.4 Long term (current) use of insulin; Z68.30 Body mass index [BMI] 30.0-30.9, adult; Z23 Encounter for immunization
CPT/HCPCS: 36415; 71045; 80053; 80061; 81003; 82010; 82150; 82248; 82306; 82550; 82803; 82948; 82985; 83036; 83615; 83690; 83735; 84153; 84378; 84439; 84443; 84484; 85025; 85610; 85651; 85730; 86140; 90471; 90472; 90674; 90732; 93005; 96372; 96374; 97161; 97530; 99285; G0378; G8978; G8979; J1650; J7040